=== PATIENT | male | born 2000 | race Caucasian/White ===

== ENCOUNTER 2018-01-05 09:32 | Emergency (ER) | payer SELFPAY ==
[~2018-01-05] VITALS: Ht 177.8 cm; Wt 88.5 kg
[2018-01-05 09:45] VITALS: BP 138/65
--- NOTE | 2018-01-05 09:56 | NUR ---
PATIENT PRESENTS TO ED WITH OCCIPITAL REGION PAIN, POINTING TO OCCIPITAL PROTUBERANCE AND MILD DIZZINESS. PT STATES . DENIES N/V/D; SKIN IS PINK/WARM/DRY; AAOX4 WITH EVEN AND STEADY GAIT; LUNGS CLEAR BL; HR EVEN AND REGULAR; PT DENIES ANY FEVER, CP, SOB, OR COUGH AT THIS TIME; PATIENT STATES PAIN OF 8/10 AT THIS TIME; VSS; PATIENT POSITIONED FOR COMFORT; HOB ELEVATED; BEDRAILS UP X2; BED DOWN. ER MD MADE AWARE OF PT STATUS.
[2018-01-05] MEDS ORDERED: IBUPROFEN 600 MG TAB PO ONE (10:30)
[2018-01-05 11:01] LABS: BARBITURATE, URINE NEG. ng/ml (NEG <=200); BENZODIAZEPINE, URINE NEG. ng/mL (NEG <=200); CANNABINOID, URINE NEG. ng/mL (NEG <=50); COCAINE, URINE NEG. ng/mL (NEG <=300); OPIATE, URINE NEG. ng/mL (NEG <=2000); PHENCYCLIDINE SCREEN,URINE NEG. ng/mL (NEG <=25)
[2018-01-05 11:34] VITALS: BP 132/87
== END 2018-01-05 11:34 | disposition home or self-care (01) ==
LOC: MED 09:32
DX: G89.29 Other chronic pain (principal); R51 Headache
CPT/HCPCS: 70450; 80305; 99285